=== PATIENT | female | born 1975 | race American Indian/Alaskan Native ===

== ENCOUNTER 2022-06-17 14:53 | Emergency (ER) | payer MEDICARE ==
--- NOTE | 2022-06-17 18:38 | Emergency Department Report ---
ED Psych HPI - General Chief Complaint: Psych Stated Complaint: WEAKNESS Time Seen by Provider: 06/17/22 18:19 Source: patient, EMS Mode of arrival: Stretcher Limitations: Other (schizophrenia) - History of Present Illness Initial Comments: 46-year-old female with history of seizures and schizophrenia presents to the emergency department complaining of wanting to be admitted to a psychiatric hospital for 2 days. Patient states that she has been more depressed and having suicidal ideations, without a plan for 2 days because of weakness. Patient sta ekaterina that the weakness is due to her increase in seizure medications. Denies any alleviating factors, but states that she has not seen her psychiatrist for several months. MD Complaint: suicidal ideation - Related Data Allergies Allergy/AdvReac Type Severity Reaction Status Date / Time No Known Allergies Allergy Verified 06/17/22 16:22 ED Review of Systems ROS: Stated complaint: WEAKNESS Other details as noted in HPI Constitutional: denies: chills, fever Eyes: denies: eye pain, eye discharge, vision change ENT: denies: ear pain, throat pain Respiratory: denies: cough, shortness of breath, wheezing Cardiovascular: denies: chest pain, palpitations Endocrine: no symptoms reported Gastrointestinal: denies: abdominal pain, nausea, diarrhea Genitourinary: denies: urgency, dysuria, discharge Musculoskeletal: denies: back pain, joint swelling, arthralgia Skin: denies: rash, lesions Neurological: denies: headache, weakness, paresthesias Psychiatric: depression, suicidal thoughts. denies: anxiety Hematological/Lymphatic: denies: easy bleeding, easy bruising ED Physical Exam - General Limitations: No Limitations General appearance: alert, in no apparent distress - Head Head exam: Present: atraumatic, normocephalic - Eye Eye exam: Present: normal appearance - ENT ENT exam: Present: mucous membranes moist - Neck Neck exam: Present: normal inspection - Respiratory Respiratory exam: Present: normal lung sounds bilaterally. Absent: respiratory distress - Cardiovascular Cardiovascular Exam: Present: regular rate, normal rhythm. Absent: systolic murmur, diastolic murmur, rubs, gallop - GI/Abdominal GI/Abdominal exam: Present: soft, normal bowel sounds - Extremities Exam Extremities exam: Present: normal inspection - Back Exam Back exam: Present: normal inspection - Neurological Exam Neurological exam: Present: alert, oriented X3 - Psychiatric Psychiatric exam: Present: depressed, flat affect, suicidal ideation. Absent: m anic - Skin Skin exam: Present: warm, dry, intact, normal color. Absent: rash ED Course Vital Signs 06/17/22 16:21 Temperature 97.6 F Pulse Rate 81 Respiratory 18 Rate Blood Pressure 111/68 [Left] O2 Sat by Pulse 98 Oximetry - Reevaluation(s) Reevaluation #1: 06/17/22 22:26 46-year-old female with a history of schizophrenia here on a 1013 for suicidal ideations. Patient is pending a, urine drug screen, and COVID test. Patient to be evaluated by [facility] and likely get placed in an inpatient psychiatric facility. ED Medical Decision Making - Lab Data Result diagrams: 06/17/22 18:59 06/17/22 18:59 Critical care attestation.: If time is entered above; I have spent that time in minutes in the direct care of this critically ill patient, excluding procedure time. ED Disposition Clinical Impression: Suicidal ideation Disposition: 30 STILL A PATIENT Is pt being admited?: No Condition: Stable
[2022-06-17 19:22] LABS: Basophils % (Auto) 0.4 % (0.0-1.8); Hematocrit 36.2 % (30.3-42.9); Hemoglobin 12.2 gm/dl (10.1-14.3); Lymphocytes # (Auto) 2.1 K/mm3 (1.2-5.4); Lymphocytes % (Auto) 46.3 % (13.4-35.0); Mean Corpuscular HGB Conc 34 % (30-34); Mean Corpuscular Volume 97 fl (79-97); Monocytes # (Auto) 0.6 K/mm3 (0.0-0.8); Monocytes % (Auto) 12.5 % (0.0-7.3); Platelet Count 165 K/mm3 (140-440); Red Blood Count 3.73 M/mm3 (3.65-5.03); Red Cell Distribution Width 14.1 % (13.2-15.2)
[2022-06-17 19:35] LABS: Blood Urea Nitrogen 9 mg/dL (7-17); Calcium 8.8 mg/dL (8.4-10.2); Hemolysis Index 6
[2022-06-17 19:40] LABS: BUN/Creatinine Ratio 15
[2022-06-18 10:34] LABS: HCG Qualitative,Urine Negative (Negative)
[2022-06-18 10:41] LABS: Amorphous Crystals,Urine 2+; RBC,Urine < 1.0 /HPF (0.0-6.0)
[2022-06-18 10:45] LABS: Amphetamine Screen,Urine Negative; Benzodiazepines Screen,Urine Negative; Cannabinoid Screen,Urine Negative; Cocaine Screen,Urine Negative; Methadone Screen,Urine Negative; Opiate Screen,Urine Negative
[2022-06-18 10:53] LABS: Color,Urine Yellow (Yellow)
[2022-06-18 10:54] LABS: Bilirubin,Urine Negative (Negative); Blood,Urine Negative (Negative); Protein,Urine <15 mg/dL mg/dL (Negative); Urobilinogen,Urine < 2.0 mg/dL (<2.0)
--- NOTE | 2022-06-18 18:14 | Event Note ---
Date: 06/18/22 Patient had no issues during my shift. She has been accepted for transfer.
[2022-06-18 21:10] VITALS: BP 100/63
== END 2022-06-18 23:29 | disposition still patient (30) ==
LOC: ED 14:53 → EEVIPCON 14:53 → ED 06-18 23:29
DX: R45.851 Suicidal ideations (principal); F20.9 Schizophrenia, unspecified; Z20.822 Contact with and (suspected) exposure to COVID-19
CPT/HCPCS: 36415; 80048; 80307; 81001; 81025; 85025; 99285; U0003; 80320; G0480